=== PATIENT | female | born 1955 | race Caucasian/White ===

== ENCOUNTER 2019-04-08 16:51 | Outpatient (CLI) | payer MEDICARE, MEDICAID | END 2019-04-08 16:52 | disposition critical access hospital (66) | LOC: EMS 16:51 | PROVIDERS: ATTEND Surgery | DX: R46.89 Other symptoms and signs involving appearance and behavior (principal) | CPT/HCPCS: A0425; A0429 ==

== ENCOUNTER 2019-04-08 17:11 | Emergency (ER) | payer MEDICARE, MEDICAID ==
--- NOTE | 2019-04-08 17:23 | ED Physician Documentation ---
History of Present Illness - Stated complaint Stated Complaint: MHE - History obtained from History obtained from: Patient - History of Present Illness Timing: Today (64-year-old woman brought in by ambulance. Evidently she had just arrived at [facility] facility today where she was verbally aggressive and sent to the emergency department. The patient was asking me to call her sisters, no number was listed. I spoke with Olivia Calvillo, 1 of her appointed guardians who confirmed that her sisters are not involved with her and that there is a guardianship agency in place for this disabled adult with dementia. She is never really been aggressive before, but today is the first time she is been in memory care facility because she is no longer safe at home and that is probably the inciting cause for her aggression today. The patient is an unreliable historian because of dementia. She says that she just came from [facility], does not remember being at the memory care facility, does not know why she is here, does not know her phone number, does not know what year it is.) Review of Systems Unable to obtain: Dementia PD PAST MEDICAL HISTORY - Present Medications Home Medications: Ambulatory Orders Medication Instructions Recorded Confirmed LORazepam [Ativan] 0.25 mg PO Q8HR PRN #10 tablet 04/09/19 QUEtiapine [SEROquel] 25 mg PO QPM #30 tablet 04/09/19 RX: traZODone [Desyrel] 25 mg PO HS PRN #20 tablet 04/09/19 - Allergies Allergies/Adverse Reactions: Allergies Allergy/AdvReac Type Severity Reaction Status Date / Time acetazolamide Allergy Unknown Verified 04/08/19 17:26 codeine Allergy Unknown Verified 04/08/19 17:26 droperidol Allergy Unknown Verified 04/08/19 17:26 fluoxetine Allergy Unknown Verified 04/08/19 17:26 furosemide Allergy Unknown Verified 04/08/19 17:26 meperidine Allergy Unknown Verified 04/08/19 17:26 nitrofurantoin Allergy Unknown Verified 04/08/19 17:26 [From Macrodantin] oxymorphone Allergy Unknown Verified 04/08/19 17:26 pentazocine Allergy Unknown Verified 04/08/19 17:26 Sulfa (Sulfonamide Allergy Unknown Verified 04/08/19 17:26 Antibiotics) PD ED PE NORMAL - Vitals Vital signs reviewed: Yes - General General: Other (She is alert and oriented to person only) - HEENT HEENT: PERRL, EOMI - Neck Neck: Supple, no meningeal sign, No bony TTP - Cardiac Cardiac: RRR, No murmur - Respiratory Respiratory: No respiratory distress, Clear bilaterally - Abdomen Abdomen: Normal bowel sounds, Soft, Non tender - Neuro Neuro: aesthetician 2-12 intact, No motor deficit, No sensory deficit, Normal speech Eye Opening: Spontaneous Motor: Obeys Commands Verbal: Confused GCS Score: 14 Results - Vitals Vitals: Vital Signs - 24 hr 04/08/19 04/08/19 04/09/19 17:21 17:24 00:10 Temperature 36.6 C 36.5 C Heart Rate 97 97 94 Respiratory 18 18 16 Rate Blood Pressure 141/87 H 141/87 H 128/80 O2 Saturation 97 97 99 04/09/19 02:45 Temperature 36.1 C L Heart Rate 74 Respiratory 16 Rate Blood Pressure 126/70 O2 Saturation 97 Oxygen O2 Source Room air - Labs Labs: Laboratory Tests 04/08/19 04/08/19 04/08/19 17:31 17:31 17:36 WBC 7.4 RBC 4.62 Hgb 13.7 Hct 41.6 MCV 90.0 MCH 29.7 MCHC 32.9 RDW 13.6 Plt Count 235 MPV 10.2 Neut # (Auto) 5.4 Lymph # (Auto) 1.4 L [place] # (Auto) 0.5 Eos # (Auto) 0.0 Baso # (Auto) 0.1 Absolute Nucleated RBC 0.00 Nucleated RBC % 0.0 Sodium 143 Potassium 3.2 L Chloride 106 Carbon Dioxide 27 Anion Gap 10.0 BUN 15 Creatinine 0.8 Estimated GFR (MDRD) 72 L Glucose 111 H Calcium 8.9 Total Bilirubin 0.5 AST 23 ALT 15 Alkaline Phosphatase 57 Total Protein 7.0 Albumin 4.0 Globulin 3.0 Albumin/Globulin Ratio 1.3 Lipase 37 Urine Color YELLOW Urine Clarity CLEAR Urine pH 6.0 Ur Specific [place] <=1.005 Urine Protein NEGATIVE Urine Glucose (UA) NEGATIVE Urine Ketones NEGATIVE Urine Occult Blood NEGATIVE Urine Nitrite NEGATIVE Urine Bilirubin NEGATIVE Urine Urobilinogen 0.2 (NORMAL) Ur Leukocyte Esterase NEGATIVE Ur Microscopic Review NOT INDICATED Urine Culture Comments NOT INDICATED Urine Opiates Screen NEGATIVE Ur Oxycodone Screen NEGATIVE Urine Methadone Screen NEGATIVE Ur Propoxyphene Screen NEGATIVE Ur Barbiturates Screen NEGATIVE Ur Tricyclics Screen NEGATIVE Ur Phencyclidine Scrn NEGATIVE Ur Amphetamine Screen NEGATIVE U Methamphetamines Scrn NEGATIVE U Benzodiazepines Scrn NEGATIVE Urine Cocaine Screen NEGATIVE U Cannabinoids Screen NEGATIVE Ethyl Alcohol < 5.0 PD MEDICAL DECISION MAKING - ED course ED course: I called her guardian, Olivia Calvillo shortly after her arrival. We agreed we will perform tele-psychiatric consultation and choose some sort of sedation regimen to add to her current medications, she is not on any sedatives currently, to make her more safe at the memory care facility. Pt signed out to Dr Calabrese at shift change to followup on telepsych recs. Departure - Departure Disposition: Home, Self Care Clinical Impression: Dementia Qualifiers: Dementia type: unspecified type Dementia behavioral disturbance: with behavioral disturbance Qualified Code(s): F03.91 - Unspecified dementia with behavioral disturbance Condition: Stable Instructions: ED Dementia Caregiver Support Follow-Up: Stephanie Olivas MD [Primary Care Provider] - Prescriptions: LORazepam [Ativan] 0.25 mg PO Q8HR PRN #10 tablet PRN Reason: Agitation QUEtiapine [SEROquel] 25 mg PO QPM #30 tablet RX: traZODone [Desyrel] 25 mg PO HS PRN #20 tablet PRN Reason: Insomnia Discharge Date/Time: 04/09/19 02:50
[2019-04-08 17:37] LABS: BASOPHILS # (AUTO) 0.1 10^3/uL (0.0-0.1); BASOPHILS % (AUTO) 0.9 %; EOSINOPHILS % (AUTO) 0.5 %; HGB - HEMOGLOBIN 13.7 g/dL (12.0-16.0); LYMPHOCYTES # (AUTO) 1.4 10^3/uL (1.5-3.5); LYMPHOCYTES % (AUTO) 19.1 %; MEAN CORPUSCULAR HEMOGLOBIN 29.7 pg (27.0-31.0); MEAN CORPUSCULAR HGB CONC 32.9 g/dL (32.0-36.0); MEAN PLATELET VOLUME 10.2 fL (7.9-10.8); MONOCYTES # (AUTO) 0.5 10^3/uL (0.0-1.0); MONOCYTES % (AUTO) 6.7 %; NEUTROPHILS # (AUTO) 5.4 10^3/uL (1.5-6.6); NEUTROPHILS % (AUTO) 72.5 %; PLT - PLATELET COUNT 235 10^3/uL (130-450); RED BLOOD COUNT 4.62 10^6/uL (4.20-5.40); RED CELL DISTRIBUTION WIDTH 13.6 % (12.0-15.0); WHITE BLOOD COUNT 7.4 x10^3/uL (4.8-10.8)
[2019-04-08 17:43] LABS: BILIRUBIN,URINE NEGATIVE (NEGATIVE); GLUCOSE, URINE (UA) NEGATIVE (NEGATIVE); KETONES,URINE (UA) NEGATIVE (NEGATIVE); LEUKOCYTE ESTERASE, URINE NEGATIVE (NEGATIVE); MUDS CUTOFF CONCENTRATIONS CUTOFF CONC BELOW:; NITRITE,URINE NEGATIVE (NEGATIVE); OCCULT BLOOD,URINE NEGATIVE (NEGATIVE); PROTEIN,URINE NEGATIVE (NEGATIVE); UROBILINOGEN,URINE 0.2 (NORMAL) E.U./dL (NORMAL)
[2019-04-08 17:45] LABS: CLARITY,URINE CLEAR (CLEAR)
[2019-04-08 17:51] LABS: ALBUMIN/GLOBULIN RATIO 1.3 (1.0-2.2); ALKALINE PHOSPHATASE 57 IU/L (42-121); ALT ALANINE AMINOTRANSFERASE 15 IU/L (10-60); AST ASPARTATE AMINOTRANSFERASE 23 IU/L (10-42); BILIRUBIN,TOTAL 0.5 mg/dL (0.2-1.0); BUN - BLOOD UREA NITROGEN 15 mg/dL (6-20); CALCIUM 8.9 mg/dL (8.5-10.3); CARBON DIOXIDE - CO2 27 mmol/L (21-32); CHLORIDE 106 mmol/L (101-111); CREATININE 0.8 mg/dL (0.4-1.0); GFR - MDRD 72 (>89); GLUCOSE 111 mg/dL (70-100); LIPASE 37 U/L (22-51); SODIUM 143 mmol/L (135-145)
[2019-04-08 17:58] LABS: AMPHETAMINE SCREEN,URINE NEGATIVE (NEGATIVE); BENZODIAZEPINES SCREEN, URINE NEGATIVE (NEGATIVE); COCAINE SCREEN URINE NEGATIVE (NEGATIVE); METHADONE SCREEN, URINE NEGATIVE (NEGATIVE); METHAMPHETAMINES SCREEN, URINE NEGATIVE (NEGATIVE); OPIATE SCREEN, URINE NEGATIVE (NEGATIVE); OXYCODONE SCREEN, URINE NEGATIVE (NEGATIVE); PROPOXYPHENE SCREEN, URINE NEGATIVE (NEGATIVE); TRICYCLIC ANTIDEPRESSANT,URINE NEGATIVE (NEGATIVE)
--- NOTE | 2019-04-09 01:46 | TELEPSYCH PHYS NOTE ---
Telepsych Note - CHIEF COMPLAINT/HX OF PRESENT ILLNESS Cheif Complaint and History of Present Illness: Name: Samantha Prescott : 77. 40M Date: 04/09/19 Time: 3:25am Location of patient: [facility] ED Location of doctor: [facility] This evaluation was conducted via telepsychiatry with the assistance of onsite staff Chief Complaint: agitation, confusion. History of Present Illness: Pt seen by televideo with help from the onsite staff. Pt is a 64 yo female with a reported hx of Depression, Anorexia and Dementia. Pt was referred by the [facility] after she presented there for the first time today. She was placed under guardianship and deemed that she was not safe to live alone. This was apparently the first time she would be in a nursing facility and previously lived home alone. After at the facility for a few hours she reportedly became verbally aggressive. No reported physical aggression was reported. Per staff, in the ED, she has been intermittently agitated, and verbally aggressive. No physical aggression. Per staff, the Nursing facility is willing to accept the pt back with medication recommendations. Pt seen and evaluated. Pt is a very poor historian. She is awake and alert however only oriented to self. Not oriented to date, current events, place nor purpose. Test Desk Trouble Locator reoriented pt several times however she appears unable to retain any new information. Pt has no recollection of the events which led to her ED admission, nor moving out of her home earlier yesterday. She also has no recol lection of her pending eviction. She states she is scared and upset. States she felt that she was being held in fdc. Repeatedly states she has done nothing wrong and that she wants to go home. She is unable to provide the location of her previous home. She states she has 2 sisters and wants to see them. Stated also that she felt that her sisters may have been part of the reason why she is here. States her sisters want money. States she has a dog, named Valentin and she misses her dog and that she is worried about her dog. Of note, per the guardian, her sister picked up the pts dog earlier yesterday. Pt denies AVHs, SI nor HI. Notes some paranoid thoughts re: sisters and persons around her in general. She is calm but very confused, dysthymic and depressed. She is not agitated, yelling or cursing at this time. She is not making any threats. Acknowledges some memory impairment but states she feels she can still manage on her own because I am careful and also states she has people she can call. She also acknowledges feeling more confused, anxious and scared. She reports no thoughts of wanting to harm herself or anyone else. States, that is something I would never do I just want to go home. Collateral: Discussed case with staff and chart review. Pt is under the [employer]. Test Desk Trouble Locator spoke with one of her assigned guardians, Radha @ [phone] who reports that the pt was moved to the nursing facility earlier today however she was called and informed that she was upset by this, trying to leave several times, kicking at the doors and made a vague SI threat if she was not allowed to leave. Of note, states the pt has from time to time made SI threats when she upset, frustrated or to manipulate a situation. States she has been under guardianship for over a year. States her family petitioned for this. States he sisters are peripherally in her life as the pt has been intermittently accepting of them and not. She has made negative statements and accusations about her sisters. States she has felt for a long time that she was unable to live independently however could not get her removed from her home until her memory impairment declined more significantly. States she was also pending eviction from her home as she was unable to follow through with the rules of the apartment building. States she would often forget and leave her dog in various places. States she had a tennis camp instructor for 8 hours per week however would often get verbally aggressive towards them. Other individuals in the building would help her specifically one long time male friend. States she would call her, the other guardian and her friends numerous times per day due to her severe memory impairment asking how to do things or where things were. States she has left pots on the stove which have burned, refrigerator has been left open long enough that her food spoils. Cannot manage her medications and has significant difficulty retaining new information. States she had tried to get her previously into an assisted living facility however she would either refuse or the facility would indicate that she needs a higher level of care. Due to the pending eviction and further decline she was placed at the nursing care facility yesterday. States in order to get her there she and her long-term friend told her that she was going only to look at new places to live. States while there the staff distracted her and she and the friend left. States she seemed to be okay for a few hours but once she realized that she was not going home she became upset. States that facility indicated that she attempted to leave a few times, attempted to climb over or under a fence and kicked a door. No reported physical aggression towards anyone. States she was told that the pt can return. SI/ Self harm: Pt denies SI/attempts. Per guardian, hx of making vague Si statements when upset, no attempts and typically recants the statements. HI/Violence: no reported hx of HI nor physical aggression towards others. Trauma history: not reported Access to weapons: none reported Legal: not reported . Psychiatric History/Treatment History: previous inpt and outpt treatment. No current treatment for the past year. Drug/Alcohol History: none reported Medical History: TBI, Anorexia, dementia, depression, chronic UTI, osteoporosis Medications & Freq: ASA, diltiazem, donepezil 10mg HS, Raloxifene, Zoloft 200mg Allergies: multiple reviewed in chart Sleep: decreased Family Psych History/History of suicide none reported Social History: previously lived alone with limited FUSE SPOOLER. Moved to nursing care facility, sisters peripherally involved. Education: advanced degree Employed: retired nurse. Stressors: see HPI Strengths/supports: guardians, fdc friend, sisters peripherally involved. Appearance and attire: casual Attitude and behavior: cooperative Affect and mood: scared nervous upset / anxious, reactive. Association and thought processes: forgetful, repetitive Thought content: some paranoia re: sisters. Denies SI/HI Perception: Denies AVHs. Sensorium, memory, and orientation: AxOx1 (self) Intellectual functioning: unable to assess fully Insight and judgment: impaired - PSYCHIATRIC HX/TREATMENT HX Psychiatric: Depression, Anxiety - MEDICAL HX Does the pt have a hx of MRSA?: Yes Neurological History: Dementia Cardiovascular: Hypertension Is Patient ?: No - HOME MEDICATIONS Home Meds (as last confirmed): Patient History Medication Instructions Recorded Confirmed Home Medications Unobtainable 04/09/19 04/09/19 [HOME MEDICATIONS UNOBTAINABLE] - ALLERGIES Allergies (as last confirmed): Allergies Allergy/AdvReac Type Severity Reaction Status Date / Time acetazolamide Allergy Unknown Verified 04/08/19 17:26 codeine Allergy Unknown Verified 04/08/19 17:26 droperidol Allergy Unknown Verified 04/08/19 17:26 fluoxetine Allergy Unknown Verified 04/08/19 17:26 furosemide Allergy Unknown Verified 04/08/19 17:26 meperidine Allergy Unknown Verified 04/08/19 17:26 nitrofurantoin Allergy Unknown Verified 04/08/19 17:26 [From Macrodantin] oxymorphone Allergy Unknown Verified 04/08/19 17:26 pentazocine Allergy Unknown Verified 04/08/19 17:26 Sulfa (Sulfonamide Allergy Unknown Verified 04/08/19 17:26 Antibiotics) - TREATMENT/PHARMACOLOGICAL RECOMMENDATION Treatment - Pharmacological - Therapy Recommendations: Diagnosis: Major Neurocognitive Disorder, Dementia, Unspecified Depressive Disorder, by hx, Adjustment Disorder. Impression/Risk Assessment: 64 yo female with dementia and also a hx of Depression who presented to the ED, referred by the [facility] after the pt presented there for the first time yesterday due to verbal aggression, attempting to leave and reportedly making a SI threat. Pt has no recollection of any of this. Has no recollection of moving out of her home. She is currently calm but very anxious. She denies AVHs, delusions nor SI/HI. Has been noted with verbal outbursts, demanding to leave the hospital and go home but no physical aggressiveness. She was not physically aggressive at the group home. She is oriented primarily only to self and the recent significant changes have been somewhat destabilizing and triggering for her. She will likely and understandably have difficulty adjusting to her new home. Treatment Recommendations: Pt is very confused but currently calm. No reported physical aggression in the ED. She is very confused which enhances her anxiety and fear. Per staff and guardian, the facility is a specialized and secured dementia care facility and willing to accept the pt back with medication reccs. She is unable to live independently. Pt can be discharged back to the nursing care facility with the following recommendations: Medication Recommendations: Start Seroquel 12.5mg po QPM, can increased to 25mg QPM on day 3. Blood pressure should be monitored more frequently during the initiation and titration of Seroquel. Can offer Ativan 0.25mg po Q 8 hours PRN anxiety/agitation, can offer 1st dose now. Ativan should be used sparingly and only when needed. Trazodone 25mg HS PRN insomnia Should continue Zoloft at current dose of 200mg po daily Pt will need outpt psychiatric follow up for further management. Should sxs worsen would consider inpt geropsychiatric admission for stabiliza tion. - TIME SPENT & PROVIDER LOCATION Telepsych consultation conducted via videoconferencing: Yes List names and roles of persons who participated in consult: tammy billingsley mistie (guardian) Telepsych [place] Time Telepsych consult began: 03:25 Time Telepsych consult completed: 04:00
[2019-04-09] MEDS ORDERED: LORazepam 0.5 MG TABLET PO STA (02:05)
[2019-04-09] MEDS ORDERED: traZODone 50 MG TABLET PO STA (02:05)
[2019-04-09 02:50] VITALS: BP 126/70
== END 2019-04-09 02:50 | disposition home or self-care (01) ==
LOC: ED 17:11
DX: F03.91 Unspecified dementia, unspecified severity, with behavioral disturbance (principal)
CPT/HCPCS: 36415; 80053; 81003; 83690; 85025; 99281; 99283; A9270; G0425; Q3014; 80306; 80320; 81001; 87086

== ENCOUNTER 2019-04-09 02:48 | Outpatient (CLI) | payer MEDICARE, MEDICAID | END 2019-04-09 02:49 | disposition home or self-care (01) | LOC: EMS 02:48 | PROVIDERS: ATTEND Surgery | DX: F03.90 Unspecified dementia, unspecified severity, without behavioral disturbance, psychotic disturbance, mood disturbance, and anxiety (principal); R45.1 Restlessness and agitation | CPT/HCPCS: A0425; A0428 ==

== ENCOUNTER 2020-07-12 18:20 | Outpatient (CLI) | payer MEDICARE, MEDICAID | END 2020-07-12 18:21 | disposition critical access hospital (66) | LOC: EMS 18:20 | PROVIDERS: ATTEND Surgery | DX: S09.90XA Unspecified injury of head, initial encounter (principal); W01.0XXA Fall on same level from slipping, tripping and stumbling without subsequent striking against object, initial encounter; Y93.01 Activity, walking, marching and hiking; Y92.199 Unspecified place in other specified residential institution as the place of occurrence of the external cause | CPT/HCPCS: A0425; A0429 ==

== ENCOUNTER 2020-07-12 18:37 | Emergency (ER) | payer MEDICARE, MEDICAID ==
[2020-07-12] MEDS ORDERED: LIDOCAINE 1%-EPI 1:100000 20 ML MDV SUBQ STA (18:45)
--- NOTE | 2020-07-12 18:45 | ED Physician Documentation ---
PD HPI HEAD INJURY - Stated complaint Stated Complaint: GLF, HEAD LAC - History obtained from History obtained from: Patient, EMS, Caregiver - History of Present Illness Mechanism of head injury: Fell Where head injury occurred: Home (she lives in SNF, was noted to be walking into another patient room and tripped and fell backward, striking back of head with lac and bleeding. No LOC, no vomiting, no altered MS from baseline (s/p TBI and tremors).) Timing - onset: Today Location of injury: Back Associated symptoms: No: LOC, AMS, Nausea / vomiting Symptoms worsen with: Palpation Contributing factors: No: Anticoagulated Recently seen: Not recently seen Review of Systems Unable to obtain: Other (report by EMS from SNF) Constitutional: denies: Fever Respiratory: denies: Dyspnea, Cough GI: denies: Vomiting Neurologic: denies: Altered mental status PD PAST MEDICAL HISTORY - Past Medical History Cardiovascular: Hypertension Neuro: Dementia, Head injury (with significant cognitive deficit ongoing.) Psych: Depression, Anxiety - Past Surgical History Past Surgical History: No - Present Medications Home Medications: Ambulatory Orders Medication Instructions Recorded Confirmed Aspirin [Aspirin EC] 81 mg DAILY 07/12/20 07/12/20 Donepezil HCl [Aricept] 10 mg PO QPM 07/12/20 07/12/20 LORazepam [Ativan] 0.5 mg Q4H PRN 07/12/20 07/12/20 LORazepam [Ativan] 1 mg Q6H PRN 07/12/20 07/12/20 Raloxifene [Evista] 60 mg DAILY 07/12/20 07/12/20 Sertraline HCl [Zoloft] 200 mg QPM 07/12/20 07/12/20 dilTIAZem HCL [Diltiazem 24Hr ER 120 mg PO DAILY 07/12/20 07/12/20 (Xr)] haloperidoL [Haldol] 0.5 mg DAILY 07/12/20 07/12/20 haloperidoL [Haldol] 1 mg QPM 07/12/20 07/12/20 traZODone [Desyrel] 50 mg QPM PRN 07/12/20 07/12/20 traZODone [Desyrel] 100 mg QPM 07/12/20 07/12/20 - Allergies Allergies/Adverse Reactions: Allergies Allergy/AdvReac Type Severity Reaction Status Date / Time acetazolamide Allergy Unknown Verified 07/12/20 18:50 codeine Allergy Unknown Verified 07/12/20 18:50 droperidol Allergy Unknown Verified 07/12/20 18:50 fluoxetine Allergy Unknown Verified 07/12/20 18:50 furosemide Allergy Unknown Verified 07/12/20 18:50 meperidine Allergy Unknown Verified 07/12/20 18:50 nitrofurantoin Allergy Unknown Verified 07/12/20 18:50 [From Macrodantin] oxymorphone Allergy Unknown Verified 07/12/20 18:50 pentazocine Allergy Unknown Verified 07/12/20 18:50 Sulfa (Sulfonamide Allergy Unknown Verified 07/12/20 18:50 Antibiotics) - Social History Does the pt smoke?: No Smoking Status: Never smoker Does the pt drink ETOH?: No Does the pt have substance abuse?: No - Immunizations Immunizations are current?: Yes - POLST Patient has POLST: No PD ED PE NORMAL - Vitals Vital signs reviewed: Yes - General General: Alert and oriented X 3, Well developed/nourished, Other (anxious and tremors, but able to answer questions okay. ) - HEENT HEENT: Other (Occipital scalp shows a localized hematoma with a laceration 1.5 cm without any active bleeding or foreign bodies. The edges are slightly irregular and apart but easily brought together by palpation.) - Neck Neck: Supple, no meningeal sign, No bony TTP, No adenopathy - Cardiac Cardiac: RRR, No murmur - Respiratory Respiratory: Clear bilaterally, Other (no chestwall tenderness) - Abdomen Abdomen: Soft, Non tender - Back Back: No spinal TTP - Derm Derm: Normal color, Warm and dry - Neuro Neuro: Alert and oriented X 3, No motor deficit, Other (baseline tremoring and ataxic movements, per report of EMS. ) Eye Opening: Spontaneous Motor: Obeys Commands Verbal: Oriented GCS Score: 15 Results - Vitals Vitals: Vital Signs - 24 hr 07/12/20 18:38 Temperature 36.8 C Heart Rate 112 H Respiratory 20 Rate Blood Pressure 148/108 H O2 Saturation 97 Oxygen O2 Source Room air Procedures - Laceration (location) occipital scalp Length in cm: 1.5 Wound type: Curved, Into subcut fat Anesthesia: Lidocaine 2% with epi Wound Preparation: Irrigated copiously NS, Wound explored, To the base. No: FB identified Skin layer closure: [place] Other: Patient tolerated well, No complications Complexity: Simple PD MEDICAL DECISION MAKING - ED course Complexity details: reviewed results (Not any blood thinners and has no concussive symptoms which is localized tenderness in the back of the head. Baseline level of mentation per EMS as reported by caregivers. No obvious indication for imaging.), re-evaluated patient (It was a little bit difficult we were able to support her well enough to clean the wound and have matilde in place with adequate closure.), considered differential (Patient did not have any neck pain or tenderness and had a good range of motion of the neck. She was a little bit anxious and tremorous which reportedly is baseline for her. She was able to answer questions well. No concussive symptoms.), d/w patient Departure - Departure Disposition: 01 Home, Self Care Clinical Impression: Scalp laceration Qualifiers: Encounter type: initial encounter Qualified Code(s): S01.01XA - Laceration without foreign body of scalp, initial encounter Accidental fall Qualifiers: Encounter type: initial encounter Qualified Code(s): W19.XXXA - Unspecified fall, initial encounter Condition: Stable Record reviewed to determine appropriate education?: Yes Instructions: ED Laceration Scalp Stitch Or Stap Comments: My suture care: It is okay to wash and shower. Clean the area purposely with soap and water once or twice daily. Apply ointment to the area with each cleaning. Recheck if signs of infection. Staple removal 8 to 10 days.
[2020-07-12] MEDS ORDERED: LIDOCAINE 2%-EPI 1:100000 20 ML MDV SUBQ STA (18:50)
[2020-07-12] MEDS ORDERED: LIDOCAINE 2%-EPI 1:100000 20 ML MDV ONE (18:59)
[2020-07-12] MEDS ORDERED: HYDROmorphone 2 MG/ML VIAL IM STA (18:59)
[2020-07-12] MEDS ORDERED: diazePAM INJ 5 MG/ML SYRINGE IM STA (19:06)
[2020-07-12 19:53] VITALS: BP 148/100
== END 2020-07-12 19:45 | disposition home or self-care (01) ==
LOC: EDUNIT# → ED 18:37
DX: S01.01XA Laceration without foreign body of scalp, initial encounter (principal); W01.10XA Fall on same level from slipping, tripping and stumbling with subsequent striking against unspecified object, initial encounter; Y93.01 Activity, walking, marching and hiking; Y92.129 Unspecified place in nursing home as the place of occurrence of the external cause; I10 Essential (primary) hypertension; F03.90 Unspecified dementia, unspecified severity, without behavioral disturbance, psychotic disturbance, mood disturbance, and anxiety
CPT/HCPCS: 12001; 96372; 99283; 99285; J1170

== ENCOUNTER 2020-07-12 19:34 | Outpatient (CLI) | payer MEDICARE, MEDICAID | END 2020-07-12 19:35 | disposition home or self-care (01) | LOC: EMS 19:34 | PROVIDERS: ATTEND Surgery | DX: R41.0 Disorientation, unspecified (principal) | CPT/HCPCS: A0425; A0429 ==

== ENCOUNTER 2021-11-22 23:07 | Outpatient (CLI) | payer MEDICARE, MEDICAID | END 2021-11-22 23:08 | disposition critical access hospital (66) | LOC: EMS 23:07 | DX: S01.111A Laceration without foreign body of right eyelid and periocular area, initial encounter (principal); W19.XXXA Unspecified fall, initial encounter; Y92.092 Bedroom in other non-institutional residence as the place of occurrence of the external cause | CPT/HCPCS: A0425; A0429 ==

== ENCOUNTER 2021-11-22 23:24 | Emergency (ER) | payer MEDICARE, MEDICAID ==
--- NOTE | 2021-11-22 23:26 | ED Physician Documentation ---
PD HPI Fall - Stated complaint Stated Complaint: RIGHT EYE LAC, GLF - History obtained from History obtained from: Patient - History of Present Illness Mechanism of injury: Unknown Fall distance: Unknown Where injury occurred: Other ([facility]) Timing - onset: Today (tonight) Injury(ies) location: Face Contributing factors: No: Anticoagulated Recently seen: Not recently seen - Additional information Additional information: TIM after found on floor of her room; patient is a resident at [facility]. She cannot contribute to HPI/ROS due to dementia. she has a facial laceration. She has cervical collar in place by EMS. Review of Systems Unable to obtain: Dementia PD PAST MEDICAL HISTORY - Past Medical History Cardiovascular: Hypertension Neuro: Dementia, Head injury (with significant cognitive deficit ongoing.) : Chronic bladder infection Psych: Depression, Anxiety Musculoskeletal: Osteoporosis - Past Surgical History Past Surgical History: No - Present Medications Home Medications: Ambulatory Orders Medication Instructions Recorded Confirmed Aspirin [Aspirin EC] 81 mg DAILY 07/12/20 11/22/21 Donepezil HCl [Aricept] 10 mg PO QPM 07/12/20 11/22/21 LORazepam [Ativan] 1 mg Q6H PRN 07/12/20 11/22/21 Raloxifene [Evista] 60 mg DAILY 07/12/20 11/22/21 Sertraline HCl [Zoloft] 200 mg QPM 07/12/20 11/22/21 haloperidoL [Haldol] 1 mg QPM 07/12/20 11/22/21 traZODone [Desyrel] 50 mg QPM PRN 07/12/20 11/22/21 traZODone [Desyrel] 100 mg QPM 07/12/20 11/22/21 - Allergies Allergies/Adverse Reactions: Allergies Allergy/AdvReac Type Severity Reaction Status Date / Time acetazolamide Allergy Unknown Verified 11/22/21 23:31 codeine Allergy Unknown Verified 11/22/21 23:31 droperidol Allergy Unknown Verified 11/22/21 23:31 fluoxetine Allergy Unknown Verified 11/22/21 23:31 furosemide Allergy Unknown Verified 11/22/21 23:31 meperidine Allergy Unknown Verified 11/22/21 23:31 nitrofurantoin Allergy Unknown Verified 11/22/21 23:31 [From Macrodantin] oxymorphone Allergy Unknown Verified 11/22/21 23:31 pentazocine Allergy Unknown Verified 11/22/21 23:31 Sulfa (Sulfonamide Allergy Unknown Verified 11/22/21 23:31 Antibiotics) - Social History Does the pt smoke?: No Smoking Status: Never smoker Does the pt drink ETOH?: No Does the pt have substance abuse?: No - Immunizations Immunizations are current?: Yes - POLST Patient has POLST: No PD ED PE NORMAL - Vitals Vital signs reviewed: Yes - General General: No acute distress, Well developed/nourished, Other (awake, does not follow commands, does not verbalize. she repeatedly tries to grab (slowly) my arm during exam) - HEENT HEENT: PERRL, EOMI (by observation (does not follow commands)) - Neck Neck: Other (cervical collar in place) - Cardiac Cardiac: RRR - Respiratory Respiratory: No respiratory distress, Clear bilaterally PD ED PE EXPANDED - HEENT HEENT: Other (mild swelling surrounding laceration (right supraorbital ridge, lateral aspect). no obvious bony tenderness (does not appear to be uncomfortable with palpation of area of injury)) HEENT Visual: 1 - laceration (1.5 cm laceration, edges well-approximated) Results - Vitals Vitals: Oxygen O2 Source Room air - Rads (name of study) CT head Radiology: Prelim report reviewed, See rad report CT cervical spine Radiology: Prelim report reviewed, See rad report Procedures - Laceration (location) Face Length in cm: 1.5 Wound type: Linear Skin layer closure: Dermabond Other: Patient tolerated well PD MEDICAL DECISION MAKING - ED course Complexity details: reviewed results, re-evaluated patient, considered differential ED course: presents after fall [facility], facial laceration noted. No concerning find ings on CT head, CT cervical spine. Laceration repaired with dermabond. Departure - Departure Disposition: 01 Home, Self Care Clinical Impression: Fall, Facial laceration Condition: Good Instructions: ED Fall Uncertain Cause, ED Laceration Facial Skin Glue Discharge Date/Time: 11/23/21 03:17
[2021-11-22 23:31] VITALS: BP 115/77
--- NOTE | 2021-11-23 00:47 | CT Report ---
PROCEDURE: CERVICAL SPINE WO INDICATIONS: fall, head injury, dementia TECHNIQUE: Noncontrast 3 mm thick sections acquired from the skull base to the T4 level. Sagittal and coronal r eformats were then constructed. For radiation dose reduction, the following was used: automated exp osure control, adjustment of mA and/or kV according to patient size. COMPARISON: None. FINDINGS: Image quality: Excellent. Bones: No fractures or dislocations. Visualized superior ribs are intact. Soft tissues: Prevertebral soft tissues are normal in thickness. No paravertebral hematomas. No ap ical pneumothoraces. IMPRESSION: No CT evidence of acute cervical spine trauma. Reviewed by: Ely Arambula MD on 11/23/2021 12:49 AM PDT Approved by: Ely Arambula MD on 11/23/2021 12:49 AM PDT Station ID: [id number]
--- NOTE | 2021-11-23 00:49 | CT Report ---
PROCEDURE: HEAD WO INDICATIONS: fall, head injury TECHNIQUE: Noncontrast 4.5 mm thick angled axial sections acquired from the foramen magnum to the vertex. For r adiation dose reduction, the following was used: automated exposure control, adjustment of mA and/or kV according to patient size. COMPARISON: None. FINDINGS: Image quality: Excellent. CSF spaces: Basal cisterns are patent. No extra-axial fluid collections. Ventricles are normal in size and shape. Brain: No midline shift. No intracranial masses or hemorrhage. Moderate cerebral cortical atrophy. Garland-white matter interface is normal. Skull and face: Calvarium and visualized facial bones are intact, without suspicious lesions. Sinuses: Visualized sinuses and mastoids are clear. IMPRESSION: 1. No CT evidence of acute intracranial trauma. 2. No evidence of skull fracture or significant soft tissue trauma. Reviewed by: Ely Arambula MD on 11/23/2021 12:51 AM PDT Approved by: Ely Arambula MD on 11/23/2021 12:51 AM PDT Station ID: [id number]
== END 2021-11-23 03:17 | disposition home or self-care (01) ==
LOC: EDUNIT# → ED 23:24
DX: F03.90 Unspecified dementia, unspecified severity, without behavioral disturbance, psychotic disturbance, mood disturbance, and anxiety (principal); S01.111A Laceration without foreign body of right eyelid and periocular area, initial encounter; W19.XXXA Unspecified fall, initial encounter; Y92.099 Unspecified place in other non-institutional residence as the place of occurrence of the external cause
CPT/HCPCS: 12011; 99281; 99284

== ENCOUNTER 2021-11-23 03:18 | Outpatient (CLI) | payer MEDICARE, MEDICAID | END 2021-11-23 03:19 | disposition home or self-care (01) | LOC: EMS 03:18 | PROVIDERS: ATTEND Emergency Medicine | DX: R41.0 Disorientation, unspecified (principal); S01.81XA Laceration without foreign body of other part of head, initial encounter; W18.30XA Fall on same level, unspecified, initial encounter | CPT/HCPCS: A0425; A0428 ==

== ENCOUNTER 2022-02-03 20:54 | Outpatient (CLI) | payer MEDICARE, MEDICAID | END 2022-02-03 20:55 | disposition critical access hospital (66) | LOC: EMS 20:54 | DX: S01.81XA Laceration without foreign body of other part of head, initial encounter (principal); S50.312A Abrasion of left elbow, initial encounter; W18.30XA Fall on same level, unspecified, initial encounter; Y92.098 Other place in other non-institutional residence as the place of occurrence of the external cause | CPT/HCPCS: A0425; A0429 ==

== ENCOUNTER 2022-02-03 21:12 | Emergency (ER) | payer MEDICARE, MEDICAID ==
[2022-02-03 21:20] VITALS: BP 141/95
--- NOTE | 2022-02-03 23:44 | ED Physician Documentation ---
PD HPI Fall - Stated complaint Stated Complaint: GLF/EYEBROW LAC - Chief complaint Chief Complaint: Laceration - History obtained from History obtained from: EMS - History of Present Illness Mechanism of injury: Unknown Fall distance: Unknown Where injury occurred: Home Timing - onset: Unknown Injury(ies) location: Face, Left Uppper Extremity Contributing factors: No: Anticoagulated - Additional information Additional information: JERMAINEA after unwitnessed fall at [facility]. noted to have sustained left eyebrow laceration and left elbow abrasion. Patient cannot contribute to HPI/ROS due to dementia Review of Systems Unable to obtain: Dementia PD PAST MEDICAL HISTORY - Past Medical History Cardiovascular: Hypertension Neuro: Dementia, Head injury (with significant cognitive deficit ongoing.) : Chronic bladder infection Psych: Depression, Anxiety Musculoskeletal: Osteoporosis - Past Surgical History Past Surgical History: No - Present Medications Home Medications: Ambulatory Orders Medication Instructions Recorded Confirmed Aspirin [Aspirin EC] 81 mg DAILY 07/12/20 11/22/21 Donepezil HCl [Aricept] 5 mg PO QPM 07/12/20 11/22/21 LORazepam [Ativan] 1 mg Q6H PRN 07/12/20 11/22/21 Raloxifene [Evista] 60 mg DAILY 07/12/20 11/22/21 Sertraline HCl [Zoloft] 100 mg QPM 07/12/20 11/22/21 haloperidoL [Haldol] 2 mg QPM 07/12/20 11/22/21 traZODone [Desyrel] 50 mg QPM PRN 07/12/20 11/22/21 traZODone [Desyrel] 100 mg QPM 07/12/20 11/22/21 - Allergies Allergies/Adverse Reactions: Allergies Allergy/AdvReac Type Severity Reaction Status Date / Time acetazolamide Allergy Unknown Verified 02/04/22 06:45 codeine Allergy Unknown Verified 02/04/22 06:45 droperidol Allergy Unknown Verified 02/04/22 06:45 fluoxetine Allergy Unknown Verified 02/04/22 06:45 furosemide Allergy Unknown Verified 02/04/22 06:45 meperidine Allergy Unknown Verified 02/04/22 06:45 nitrofurantoin Allergy Unknown Verified 02/04/22 06:45 [From Macrodantin] oxymorphone Allergy Unknown Verified 02/04/22 06:45 pentazocine Allergy Unknown Verified 02/04/22 06:45 Sulfa (Sulfonamide Allergy Unknown Verified 02/04/22 06:45 Antibiotics) - Social History Does the pt smoke?: No Smoking Status: Never smoker Does the pt drink ETOH?: No Does the pt have substance abuse?: No - Immunizations Immunizations are current?: Yes - POLST Patient has POLST: No PD ED PE NORMAL - Vitals Vital signs reviewed: Yes - General General: Other (thin female who is awake, alert, repeatedly albeit slowly trying to get off of the stretcher, at times slowly grasps my hand and arm and then slowly pulls towards her. she does not follow commands and is mosly nonverbal (some brief, incomprehensible utterances)) - Extremities Extremities: Other (left elbow abrasion without apparent bony tenderness (does not react to palpation of the left elbow)) - Neuro Eye Opening: Spontaneous Motor: Localizes to Pain Verbal: Incomprehensible GCS Score: 11 PD ED PE EXPANDED - HEENT HEENT Visual: 1 - laceration (1 cm laceration) Results - Vitals Vitals: Vital Signs - 24 hr 02/03/22 21:18 Temperature 36.8 C Heart Rate 96 Respiratory 18 Rate Blood Pressure 141/95 H O2 Saturation 98 Oxygen O2 Source Room air Procedures - Laceration (location) Face Length in cm: 1 Wound type: Linear, Into subcut fat, Clean Skin layer closure: Dermabond Other: Patient tolerated well, No complications PD MEDICAL DECISION MAKING - ED course Complexity details: reviewed old records, considered differential ED course: presents after unwitnessed fall. laceration immediately superior to left eyebrow is reapproximated with dermabond. her behavior and mental status are unchanged compared to when I evaluated her in this ED 3 months ago under similar circumstances (fall and facial laceration). Departure - Departure Disposition: 01 Home, Self Care Clinical Impression: Dementia Qualifiers: Dementia type: Alzheimer's Alzheimer's disease onset: unspecified onset Dementia behavioral disturbance: without behavioral disturbance Qualified Code(s): G30.9 - Alzheimer's disease, unspecified Facial laceration Qualifiers: Encounter type: initial encounter Qualified Code(s): S01.81XA - Laceration wit hout foreign body of other part of head, initial encounter Condition: Good Instructions: ED Laceration Facial Skin Glue Comments: The laceration above the left eyebrow was closed with tissue adhesive ("glue"). No tests were indicated at this time Discharge Date/Time: 02/04/22 00:51
== END 2022-02-04 00:51 | disposition home or self-care (01) ==
LOC: EDUNIT# → ED 21:12
DX: S01.81XA Laceration without foreign body of other part of head, initial encounter (principal); W19.XXXA Unspecified fall, initial encounter; Y92.099 Unspecified place in other non-institutional residence as the place of occurrence of the external cause; G30.9 Alzheimer's disease, unspecified; F02.80 Dementia in other diseases classified elsewhere, unspecified severity, without behavioral disturbance, psychotic disturbance, mood disturbance, and anxiety; S50.312A Abrasion of left elbow, initial encounter; F41.9 Anxiety disorder, unspecified; F32.A Depression, unspecified
CPT/HCPCS: 12011; 99283

== ENCOUNTER 2022-02-04 00:49 | Outpatient (CLI) | payer MEDICARE, MEDICAID | END 2022-02-04 00:50 | disposition home or self-care (01) | LOC: EMS 00:49 | PROVIDERS: ATTEND Emergency Medicine | DX: F03.91 Unspecified dementia, unspecified severity, with behavioral disturbance (principal); S01.112A Laceration without foreign body of left eyelid and periocular area, initial encounter; W18.30XA Fall on same level, unspecified, initial encounter | CPT/HCPCS: A0425; A0428 ==

== ENCOUNTER 2022-02-04 06:22 | Outpatient (CLI) | payer MEDICARE, MEDICAID | END 2022-02-04 06:23 | disposition critical access hospital (66) | LOC: EMS 06:22 | DX: S01.111A Laceration without foreign body of right eyelid and periocular area, initial encounter (principal); W18.39XA Other fall on same level, initial encounter; Y93.01 Activity, walking, marching and hiking; Y92.099 Unspecified place in other non-institutional residence as the place of occurrence of the external cause | CPT/HCPCS: A0425; A0429 ==

== ENCOUNTER 2022-02-04 06:39 | Emergency (ER) | payer MEDICARE, MEDICAID ==
--- NOTE | 2022-02-04 07:13 | ED Physician Documentation ---
PD HPI HEAD INJURY - Stated complaint Stated Complaint: R EYEBROW LAC - Chief complaint Chief Complaint: Trauma Hd/Nk - History obtained from History obtained from: EMS - Additional information Additional information: 66-year-old woman with pretty severe dementia comes from a memory unit after an unwitnessed fall. She was seen by my partner last night and got a laceration to the left eyebrow, now has a laceration to the right eyebrow. No history is available from the patient due to severe dementia. Review of Systems Unable to obtain: Dementia PD PAST MEDICAL HISTORY - Past Medical History Past Medical History: Yes Cardiovascular: Hypertension Neuro: Dementia, Head injury : Chronic bladder infection Psych: Depression, Anxiety Musculoskeletal: Osteoporosis - Past Surgical History Past Surgical History: No - Present Medications Home Medications: Ambulatory Orders Medication Instructions Recorded Confirmed Aspirin [Aspirin EC] 81 mg DAILY 07/12/20 11/22/21 Donepezil HCl [Aricept] 5 mg PO QPM 07/12/20 11/22/21 LORazepam [Ativan] 1 mg Q6H PRN 07/12/20 11/22/21 Raloxifene [Evista] 60 mg DAILY 07/12/20 11/22/21 Sertraline HCl [Zoloft] 100 mg QPM 07/12/20 11/22/21 haloperidoL [Haldol] 2 mg QPM 07/12/20 11/22/21 traZODone [Desyrel] 50 mg QPM PRN 07/12/20 11/22/21 traZODone [Desyrel] 100 mg QPM 07/12/20 11/22/21 Promethazine [Phenergan] 25 mg PO Q6H PRN #10 tab 02/04/22 - Allergies Allergies/Adverse Reactions: Allergies Allergy/AdvReac Type Severity Reaction Status Date / Time acetazolamide Allergy Unknown Verified 02/04/22 06:45 codeine Allergy Unknown Verified 02/04/22 06:45 droperidol Allergy Unknown Verified 02/04/22 06:45 fluoxetine Allergy Unknown Verified 02/04/22 06:45 furosemide Allergy Unknown Verified 02/04/22 06:45 meperidine Allergy Unknown Verified 02/04/22 06:45 nitrofurantoin Allergy Unknown Verified 02/04/22 06:45 [From Macrodantin] oxymorphone Allergy Unknown Verified 02/04/22 06:45 pentazocine Allergy Unknown Verified 02/04/22 06:45 Sulfa (Sulfonamide Allergy Unknown Verified 02/04/22 06:45 Antibiotics) - Social History Does the pt smoke?: No Smoking Status: Never smoker Does the pt drink ETOH?: No Does the pt have substance abuse?: No - Immunizations Immunizations are current?: Yes - POLST Patient has POLST: No PD ED PE NORMAL - Vitals Vital signs reviewed: Yes - General General: Other (She is uncooperative, thin with dry mucous membranes) - HEENT HEENT: PERRL, EOMI, Other (3 cm shallow laceration in the mid to lateral right eyebrow) - Neck Neck: Other (Unable to assess tenderness due to mental status) - Cardiac Cardiac: RRR, No murmur - Respiratory Respiratory: No respiratory distress, Clear bilaterally - Abdomen Abdomen: Non tender - Derm Derm: Normal color, Warm and dry - Extremities Extremities: No edema, No calf tenderness / cord - Neuro Eye Opening: Spontaneous Motor: Localizes to Pain Verbal: None GCS Score: 10 Results - Vitals Vitals: Vital Signs - 24 hr 02/04/22 02/04/22 06:45 08:06 Temperature 36.9 C Heart Rate 78 67 Respiratory 16 18 Rate Blood Pressure 123/72 110/68 O2 Saturation 97 95 Oxygen O2 Source Room air - Labs Labs: Laboratory Tests 02/04/22 08:30 Urine Color YELLOW Urine Clarity CLEAR Urine pH 6.0 Ur Specific [place] >=1.030 H Urine Protein NEGATIVE Urine Glucose (UA) NEGATIVE Urine Ketones NEGATIVE Urine Occult Blood NEGATIVE Urine Nitrite NEGATIVE Urine Bilirubin NEGATIVE Urine Urobilinogen 0.2 (NORMAL) Ur Leukocyte Esterase NEGATIVE Ur Microscopic Review NOT INDICATED Urine Culture Comments NOT INDICATED - Rads (name of study) CT of the head demonstrates scattered areas of subarachnoid and small subdural hematoma and a nasal fracture Radiology: EMP read contemporaneously CT of the cervical spine without fracture Radiology: EMP read contemporaneously Procedures - Laceration (location) R eyebrow Length in cm: 3 Wound type: Into subcut fat Wound preparation: Irrigated copiously NS Skin layer closure: Dermabond PD MEDICAL DECISION MAKING - ED course Complexity details: reviewed old records (Review of chart shows that her last tetanus shot was March 2017) ED course: 66-year-old woman with pretty severe dementia presents after head injury and eyebrow laceration. Took call from [facility]. Initially they had told us that she was at her baseline, this was an EMS report. They called and said that the that she "gets this way" when she has a UTI. When queried as to what that meant, they mean that she falls more. Patient is unable to give any history. Went over to CT where she started vomiting. Haldol 5 mg IM ordered for the vomiting and also to help with some anxiolysis for upcoming In-N-Out cath. Discussed case by phone with her POA Lynn Orr. We discussed the CT findings. She confirms comfort care only, no intervention for above intracranial hemorrhages. Departure - Departure Disposition: Home, Self Care Clinical Impression: Subarachnoid bleed, Subdural bleeding Dementia Qualifiers: Dementia type: unspecified type Dementia behavioral disturbance: with behavioral disturbance Qualified Code(s): F03.91 - Unspecified dementia with behavioral disturbance Accidental fall Qualifiers: Encounter type: initial encounter Qualified Code(s): W19.XXXA - Unspecified fall, initial encounter Facial laceration Qualifiers: Encounter type: initial encounter Qualified Code(s): S01.81XA - Laceration without foreign body of other part of head, initial encounter Condition: Stable Record reviewed to determine appropriate education?: Yes Instructions: ED Head Injury Closed, ED Laceration Facial Skin Glue Prescriptions: Promethazine [Phenergan] 25 mg PO Q6H PRN #10 tab PRN Reason: Nausea / Vomiting Comments: Samantha does have some areas of hemorrhage within the brain. They are mild. I confirmed with her POA, Lynn Orr, comfort care only status and no intervention is necessary for these. I am prescribing some nausea medicine as she may get nauseous with this.
[2022-02-04] MEDS ORDERED: HALOPERIDOL 5 MG/ML VIAL IM STA (07:25)
--- NOTE | 2022-02-04 08:19 | CT Report ---
PROCEDURE: HEAD WO INDICATIONS: ams/head inj TECHNIQUE: Noncontrast 4.5 mm thick angled axial sections acquired from the foramen magnum to the vertex. For r adiation dose reduction, the following was used: automated exposure control, adjustment of mA and/or kV according to patient size. COMPARISON: CT head 11/23/2021 CT cervical spine 02/04/2022 FINDINGS: Image quality: Excellent. The ventricular system and cortical sulci demonstrate atrophy, consistent for patient's stated age. There are areas of hypodensity in the periventricular and subcortical white matter. There are scatte red areas of what appear to be subarachnoid hemorrhages most notably in the sylvian fissures as well as along the superior aspect of the basal cisterns. There also is notable hyperdensity along the tent orium. No intraventricular hemorrhage is identified. No midline shift. Brainstem is unremarkable. Gl obes are symmetrical. Sinuses are aerated. Nasal bone fracture is noted. IMPRESSION: Scattered areas of subarachnoid hemorrhage as well as hemorrhage along the tentorium which would be c onsidered more likely subdural hematoma. No midline shift. Nasal bone fracture. The above findings were discussed with Dr. Abel Rosen on 02/04/2022 at 8:15 AM. Reviewed by: Arabella Powers MD on 02/04/2022 8:17 AM PDT Approved by: Arabella Powers MD on 02/04/2022 8:17 AM PDT Station ID: [id number]
--- NOTE | 2022-02-04 08:20 | CT Report ---
PROCEDURE: CERVICAL SPINE WO INDICATIONS: ams/head inj TECHNIQUE: Noncontrast 3 mm thick sections acquired from the skull base to the T4 level. Sagittal and coronal r eformats were then constructed. For radiation dose reduction, the following was used: automated exp osure control, adjustment of mA and/or kV according to patient size. COMPARISON: CT cervical spine 11/23/2021 FINDINGS: Image quality: Excellent. Bones: No fractures or dislocations. Visualized superior ribs are intact. Soft tissues: Prevertebral soft tissues are normal in thickness. No paravertebral hematomas. No ap ical pneumothoraces. Partially visualized areas of intracranial hemorrhage are noted. IMPRESSION: No visualized fracture. Limited visualization of previously identified intracranial hemorrhage. Please see CT brain report of 02/04/2022 for further details. The above findings were discussed with Dr. Abel Rosen on 02/04/2022 at 8:13 AM Reviewed by: Arabella Powers MD on 02/04/2022 8:18 AM PDT Approved by: Arabella Powers MD on 02/04/2022 8:18 AM PDT Station ID: [id number]
[2022-02-04 08:39] LABS: BILIRUBIN,URINE NEGATIVE (NEGATIVE); CLARITY,URINE CLEAR (CLEAR); GLUCOSE, URINE (UA) NEGATIVE (NEGATIVE); KETONES,URINE (UA) NEGATIVE (NEGATIVE); LEUKOCYTE ESTERASE, URINE NEGATIVE (NEGATIVE); NITRITE,URINE NEGATIVE (NEGATIVE); OCCULT BLOOD,URINE NEGATIVE (NEGATIVE); PROTEIN,URINE NEGATIVE (NEGATIVE); UROBILINOGEN,URINE 0.2 (NORMAL) E.U./dL (NORMAL)
[2022-02-04 09:03] VITALS: BP 103/64
== END 2022-02-04 10:08 | disposition home or self-care (01) ==
LOC: EDUNIT# → ED 06:39
DX: S06.6X9A Traumatic subarachnoid hemorrhage with loss of consciousness of unspecified duration, initial encounter (principal); S06.5X9A Traumatic subdural hemorrhage with loss of consciousness of unspecified duration, initial encounter; S01.111A Laceration without foreign body of right eyelid and periocular area, initial encounter; W19.XXXA Unspecified fall, initial encounter; Z91.81 History of falling; Y92.099 Unspecified place in other non-institutional residence as the place of occurrence of the external cause; F03.91 Unspecified dementia, unspecified severity, with behavioral disturbance; R11.10 Vomiting, unspecified; F41.9 Anxiety disorder, unspecified; F32.A Depression, unspecified
CPT/HCPCS: 12013; 51701; 81001; 81003; 87086; 99281; 99284

== ENCOUNTER 2022-02-04 10:07 | Outpatient (CLI) | payer MEDICARE, MEDICAID | END 2022-02-04 10:08 | disposition home or self-care (01) | LOC: EMS 10:07 | PROVIDERS: ATTEND Emergency Medicine | DX: R41.0 Disorientation, unspecified (principal); F03.91 Unspecified dementia, unspecified severity, with behavioral disturbance; S01.111A Laceration without foreign body of right eyelid and periocular area, initial encounter; W19.XXXA Unspecified fall, initial encounter | CPT/HCPCS: A0425; A0428 ==